=== PATIENT | male | born 1985 | race Caucasian/White ===

== ENCOUNTER → 2017-09-12 | Outpatient (REF) | payer BC ==
[2017-09-12 12:54] LABS: ALBUMIN 4.1 GM/DL (3.2-5.2); ALBUMIN/GLOBULIN RATIO 1.32 (1.00-1.93); ALKALINE PHOSPHATASE 61 U/L (45-117); ALT/SGPT 38 U/L (12-78); ANION GAP 7 MEQ/L (8-16); AST/SGOT 13 U/L (7-37); BILIRUBIN,TOTAL 0.5 MG/DL (0.2-1.0); BLOOD UREA NITROGEN 9 MG/DL (7-18); CALCIUM LEVEL 8.9 MG/DL (8.5-10.1); CARBON DIOXIDE LEVEL 28 MEQ/L (21-32); CHLORIDE LEVEL 106 MEQ/L (98-107); CHOLESTEROL LEVEL 181 MG/DL (<200); CREATININE FOR GFR 0.81 MG/DL (0.70-1.30); GLOMERULAR FILTRATION RATE > 60.0 (>60); GLUCOSE, FASTING 88 MG/DL (70-105); POTASSIUM SERUM 4.3 MEQ/L (3.5-5.1); SODIUM LEVEL 141 MEQ/L (136-145); TOTAL PROTEIN 7.2 GM/DL (6.4-8.2); TRIGLYCERIDES LEVEL 319 MG/DL (<150)
== END ==
LOC: M SFHCCLAY 07:47
PROVIDERS: ATTEND Family Medicine
DX: Z00.00 Encounter for general adult medical examination without abnormal findings (principal)

== ENCOUNTER → 2019-09-24 | Outpatient (REF) | payer BC | LOC: M SFHCCLAY 10:01 | PROVIDERS: ATTEND Family Medicine | DX: Z13.79 Encounter for other screening for genetic and chromosomal anomalies (principal); Z80.0 Family history of malignant neoplasm of digestive organs; E78.2 Mixed hyperlipidemia ==

== ENCOUNTER → 2019-09-25 | Outpatient (REF) | payer BC | LOC: M SFHCCLAY 12:19 | PROVIDERS: ATTEND Family Medicine | DX: Z13.79 Encounter for other screening for genetic and chromosomal anomalies (principal); Z80.0 Family history of malignant neoplasm of digestive organs ==

== ENCOUNTER → 2019-12-19 | Outpatient (REF) | payer BC | LOC: M LAB REF 09:06 | PROVIDERS: ATTEND Dermatology | DX: D22.5 Melanocytic nevi of trunk (principal) ==

== ENCOUNTER → 2023-11-01 | Outpatient (REF) | payer BC ==
[2023-11-02 18:14] LABS: RSV AMPLIFICATION NEGATIVE (NEGATIVE)
== END ==
LOC: M SFHCCLAY 16:03
PROVIDERS: ATTEND Physician Assistant
DX: B34.9 Viral infection, unspecified (principal)

== ENCOUNTER → 2023-11-07 | Outpatient (REF) | payer BC ==
[2023-11-07 18:09] LABS: ALBUMIN 4.5 G/DL (3.2-5.2); ALKALINE PHOSPHATASE 70 U/L (46-116); ALT/SGPT 50 U/L (7.0-40); AST/SGOT 17 U/L (<34); BILIRUBIN,TOTAL 0.7 MG/DL (0.3-1.2); BLOOD UREA NITROGEN 15 MG/DL (9-23); CALCIUM LEVEL 9.8 MG/DL (8.5-10.1); CARBON DIOXIDE LEVEL 30 MMOL/L (20-31); CHLORIDE LEVEL 101 MMOL/L (98-107); CHOLESTEROL LEVEL 211 MG/DL (<200); CHOLESTEROL RISK RATIO 6.02 (<5); CREATININE FOR GFR 0.92 MG/DL (0.70-1.30); GLOMERULAR FILTRATION RATE > 60.0 (>60); GLUCOSE, FASTING 68 MG/DL (60-100); LDL CHOLESTEROL 117.2 MG/DL (<100); POTASSIUM SERUM 4.7 MMOL/L (3.5-5.1); SODIUM LEVEL 137 MMOL/L (136-145); TOTAL PROTEIN 7.5 G/DL (5.7-8.2); TRIGLYCERIDES LEVEL 294 MG/DL (<150)
== END ==
LOC: M SFHCCLAY 14:26
PROVIDERS: ATTEND Nurse Practitioner Family
DX: Z00.00 Encounter for general adult medical examination without abnormal findings (principal); J30.9 Allergic rhinitis, unspecified; E78.2 Mixed hyperlipidemia; H91.93 Unspecified hearing loss, bilateral

== ENCOUNTER 2024-01-03 06:54 | Day surgery (SDC) | payer BC ==
[~2024-01-03] VITALS: Ht 180.3 cm; Wt 90.2 kg
[2024-01-03] MEDS: NS 1,000 ML IV ONE (07:32)
[2024-01-03] MEDS ORDERED: LIDOCAINE 2% 100MG/5ML SDV (FOR ANES.) As Ordered ONE (08:00)
[2024-01-03] MEDS ORDERED: propofoL 200 MG/20 ML VIAL As Ordered ONE (08:00)
[2024-01-03 08:17] VITALS: TEMP 98
[2024-01-03 08:31] VITALS: BP 127/75; O2SAT 95
== END 2024-01-03 08:40 | disposition home or self-care (01) ==
LOC: M OPP 06:54
PROVIDERS: ATTEND Surgery
DX: Z12.11 Encounter for screening for malignant neoplasm of colon (principal); Z80.0 Family history of malignant neoplasm of digestive organs; D12.8 Benign neoplasm of rectum; K64.0 First degree hemorrhoids; Z79.899 Other long term (current) drug therapy

== ENCOUNTER → 2024-11-08 | Outpatient (REF) | payer BC ==
[2024-11-08 18:27] LABS: ALBUMIN 4.2 G/DL (3.2-5.2); ALKALINE PHOSPHATASE 70 U/L (40-129); ALT/SGPT 48 U/L (7.0-40); AST/SGOT 17 U/L (<34); BILIRUBIN,TOTAL 0.4 MG/DL (0.3-1.2); BLOOD UREA NITROGEN 19 MG/DL (9-23); CALCIUM LEVEL 9.2 MG/DL (8.5-10.1); CARBON DIOXIDE LEVEL 30 MMOL/L (20-31); CHLORIDE LEVEL 100 MMOL/L (98-107); CHOLESTEROL LEVEL 217 MG/DL (<200); CHOLESTEROL RISK RATIO 5.94 (<5); CREATININE FOR GFR 1.25 MG/DL (0.70-1.30); GLOMERULAR FILTRATION RATE > 60.0 (>60); GLUCOSE, FASTING 69 MG/DL (60-100); HDL CHOLESTEROL 36.5 MG/DL (>40); NON-HDL-C 180.5 MG/DL; POTASSIUM SERUM 4.1 MMOL/L (3.5-5.1); PSA SCREENING 0.34 NG/ML (< 4.00); SODIUM LEVEL 140 MMOL/L (136-145); TOTAL PROTEIN 7.5 G/DL (5.7-8.2); TRIGLYCERIDES LEVEL 645 MG/DL (<150)
[2024-11-08 18:35] LABS: BASO # 0.1 10^3/uL (0.0-0.2); BASO % 0.7 % (0.0-1.0); EOS # 0.1 10^3/uL (0.0-0.5); EOS % 0.6 % (0.0-3.0); HEMATOCRIT 45.2 % (42.0-52.0); HEMOGLOBIN 15.7 g/dl (13.5-17.5); LYMPH # 3.1 10^3/uL (1.5-5.0); LYMPH % 32.4 % (24.0-44.0); MEAN CORPUSCULAR HEMOGLOBIN 32.7 pg (27.0-33.0); MEAN CORPUSCULAR HGB CONC 34.7 g/dl (32.0-36.5); MEAN CORPUSCULAR VOLUME 94.2 fl (80.0-96.0); MONO # 0.7 10^3/uL (0.0-0.8); MONO % 7.2 % (2.0-8.0); NEUTROPHILS # 5.6 10^3/uL (1.5-8.5); NEUTROPHILS % 58.8 % (36.0-66.0); PLATELET COUNT, AUTOMATED 287 10^3/uL (150-450); WHITE BLOOD COUNT 9.5 10^3/uL (4.0-10.0)
== END ==
LOC: M SFHCCLAY 13:38
PROVIDERS: ATTEND Nurse Practitioner Family
DX: Z00.00 Encounter for general adult medical examination without abnormal findings (principal); J30.9 Allergic rhinitis, unspecified; E78.2 Mixed hyperlipidemia; H91.93 Unspecified hearing loss, bilateral; Z80.0 Family history of malignant neoplasm of digestive organs; Z12.5 Encounter for screening for malignant neoplasm of prostate

== ENCOUNTER → 2025-04-09 | Outpatient (CLI) | payer BC | LOC: M CLY 07:16 | PROVIDERS: ATTEND Physician Assistant Medical | DX: K44.9 Diaphragmatic hernia without obstruction or gangrene (principal); J98.11 Atelectasis; R05.3 Chronic cough; R06.00 Dyspnea, unspecified; E78.2 Mixed hyperlipidemia ==

== ENCOUNTER → 2025-04-09 | Outpatient (REF) | payer BC ==
[2025-04-09 13:12] LABS: ALT/SGPT 38 U/L (7.0-40); AST/SGOT 20 U/L (<34); CALCIUM LEVEL 8.9 MG/DL (8.5-10.1); CARBON DIOXIDE LEVEL 26 MMOL/L (20-31); CHLORIDE LEVEL 106 MMOL/L (98-107); CHOLESTEROL LEVEL 191 MG/DL (<200); CHOLESTEROL RISK RATIO 5.27 (<5); CREATININE FOR GFR 0.75 MG/DL (0.70-1.30); GLOMERULAR FILTRATION RATE > 90.0 (>60); LDL CHOLESTEROL 98.4 MG/DL (<100); NON-HDL-C 154.8 MG/DL; POTASSIUM SERUM 4.2 MMOL/L (3.5-5.1); SODIUM LEVEL 141 MMOL/L (136-145); TRIGLYCERIDES LEVEL 282 MG/DL (<150)
[2025-04-09 13:15] LABS: BASO # 0.1 10^3/uL (0.0-0.2); BASO % 0.9 % (0.0-1.0); EOS # 0.1 10^3/uL (0.0-0.5); EOS % 1.1 % (0.0-3.0); LYMPH # 2.7 10^3/uL (1.5-5.0); LYMPH % 38.7 % (24.0-44.0); MONO # 0.5 10^3/uL (0.0-0.8); MONO % 6.7 % (2.0-8.0); NEUTROPHILS # 3.7 10^3/uL (1.5-8.5); NEUTROPHILS % 52.3 % (36.0-66.0); PLATELET COUNT, AUTOMATED 265 10^3/uL (150-450)
== END ==
LOC: M SFHCCLAY 07:08
PROVIDERS: ATTEND Nurse Practitioner Family
DX: R06.00 Dyspnea, unspecified (principal); E78.2 Mixed hyperlipidemia

== ENCOUNTER → 2025-05-20 | Outpatient (CLI) | payer BC ==
[~2025-05-20] MED LIST: ALLE10TA62 PO; FENO54TA2 PO; ISOVUE-370 76% 100 ML VIAL As Ordered ONE
== END ==
LOC: M RAD 14:39
PROVIDERS: ATTEND Surgery
DX: K44.9 Diaphragmatic hernia without obstruction or gangrene (principal)

== ENCOUNTER 2025-06-02 07:03 | Day surgery (SDC) | payer BC ==
[~2025-06-02] VITALS: Ht 182.9 cm; Wt 92.1 kg
[~2025-06-02 07:03] MED LIST changes: -ISOVUE-370 76% 100 ML VIAL As Ordered ONE
[2025-06-02 09:07] VITALS: BP 113/75; O2SAT 96
== END 2025-06-02 09:19 | disposition home or self-care (01) ==
LOC: M OPP 07:03
PROVIDERS: ATTEND Surgery
DX: K44.9 Diaphragmatic hernia without obstruction or gangrene (principal); Z79.899 Other long term (current) drug therapy

== ENCOUNTER 2025-08-07 06:10 | Day surgery (SDC) | payer BC ==
[~2025-08-07] VITALS: Ht 180.3 cm; Wt 93.4 kg
[2025-08-07] MEDS: SCOPOLAMINE 1MG TRANSDERMAL PATCH TOP ONE (06:45)
[2025-08-07] MEDS ORDERED: LR 1,000 ML IV SCH (07:00)
[2025-08-07] MEDS ORDERED: HYDROmorphone HCL 2 MG/ML 1 ML VIAL As Ordered ONE (07:15)
[2025-08-07] MEDS ORDERED: MIDAZOLAM INJ 2 MG/2 ML VIAL As Ordered ONE (07:16)
[2025-08-07] MEDS ORDERED: dexmedeTOMIDine (4 MCG/ML) 200 MCG/50 ML BTL As Ordered ONE (07:17)
[2025-08-07] MEDS ORDERED: LIDOCAINE 2% 100 MG/5 ML SDV (FOR ANES.) As Ordered ONE (07:17)
[2025-08-07] MEDS ORDERED: ROCURONIUM BROMIDE 50MG/5ML VIAL As Ordered ONE (07:17)
[2025-08-07] MEDS ORDERED: SUGAMMADEX SODIUM 500 MG/5 ML VIAL As Ordered ONE (07:17)
[2025-08-07] MEDS ORDERED: ONDANSETRON 4MG/2ML VIAL As Ordered ONE (07:20)
[2025-08-07] MEDS ORDERED: dexAMETHasone 4 MG/ML 1 ML VIAL As Ordered ONE (07:20)
[2025-08-07] MEDS: ceFAZolin SODIUM 2 GM in DEXTROSE 5% (D5W) ADV/MINI-BAG 50 ML IV ONE (07:38)
[2025-08-07] MEDS ORDERED: ACETAMINOPHEN 1000MG/100ML IV BAG As Ordered ONE (07:39)
[2025-08-07] MEDS: HEPARIN SOD 5000 UNITS/ML 1 ML VIAL/SYRINGE As Ordered ONE (07:45)
[2025-08-07] MEDS ORDERED: PHENYLephrine 500MCG 5ML (100MCG/ML) SYRINGE As Ordered ONE (08:09)
[2025-08-07] MEDS: HEPARIN SOD 5000 UNITS/ML 1 ML VIAL/SYRINGE SQ ONE (08:15)
[2025-08-07] MEDS: FAMOTIDINE 20 MG/2 ML VIAL IVP ONE (08:25)
[2025-08-07] MEDS ORDERED: DESFLURANE 240 ML INHALANT As Ordered ONE (09:36)
[2025-08-07] MEDS ORDERED: SEVOFLURANE INHAL SOLN 250 ML BTL As Ordered ONE (09:38)
[2025-08-07] MEDS: FAMOTIDINE 20 MG/2 ML VIAL As Ordered ONE (11:08)
[2025-08-07] MEDS ORDERED: MORPHINE 4 MG/ML 1 ML VIAL IV PRN (12:30)
[2025-08-07] MEDS ORDERED: SIME1CAP4 PO (12:54)
[2025-08-07] MEDS ORDERED: REGL5TAB2 PO (12:54)
[2025-08-07] MEDS ORDERED: HYDR-3713 PO (12:54)
[2025-08-07] MEDS: ONDANSETRON 4MG/2ML VIAL IV PRN (14:13)
[2025-08-07] MEDS: KETOROLAC 30 MG/ML 1 ML VIAL IV ONE (14:51)
[2025-08-07] MEDS: ACETAMINOPHEN 500 MG TAB PO ONE (14:51)
[2025-08-07 15:26] VITALS: BP 109/68; TEMP 97.2; O2SAT 92
== END 2025-08-07 15:41 | disposition home or self-care (01) ==
LOC: M SDC 06:10
PROVIDERS: ATTEND Surgery
DX: K44.9 Diaphragmatic hernia without obstruction or gangrene (principal); E78.5 Hyperlipidemia, unspecified; Z79.899 Other long term (current) drug therapy
CPT/HCPCS: 43282; C1781; J0131; J0665; J0666; J0688; J1100; J1171; J1308; J1885; J2250; J2371; J2405; J2765; J3010; S2900